=== PATIENT | female | born 1935 | race Caucasian/White ===

== ENCOUNTER 2017-06-24 15:45 | Observation (INO) | payer MEDICARE, BC ==
[2017-06-24] VITALS (7 sets, daily range): BP systolic 112–146; BP diastolic 59–106; PULSE 80–136; RESP 14–20; TEMP 97.6–98.1; O2SAT 97–100
[2017-06-24] MEDS ORDERED: FLEC1TAB8 PO (16:58)
[2017-06-24] MEDS ORDERED: LISI10TA3 PO (16:58)
[2017-06-24] MEDS ORDERED: DILTIAZEM HCL 25 MG/5 ML VIAL IV PUSH ONE (17:00)
--- NOTE | 2017-06-24 17:00 | RADRPT ---
EXAM DATE/TIME: 06/24/2017 16:11 [place] COMPARISON: No previous studies available for comparison. INDICATIONS : Chest pain MEDICAL HISTORY : Cardiovascular disease. SURGICAL HISTORY : None. ENCOUNTER: Initial ACUITY: 2 weeks PAIN SCORE: 2/10 LOCATION: chest FINDINGS: PA and lateral views of the chest demonstrate the lungs to be symmetrically aerated without evidence of mass, infiltrate or effusion. The cardiomediastinal contours are unremarkable. Osseous structure s are intact. CONCLUSION: 1. No acute cardiopulmonary disease. Shant Bobby MD on June 24, 2017 at 16:58 Board Certified Radiologist. This report was verified electronically.
--- NOTE | 2017-06-24 17:10 | PD ---
HPI Chief Complaint: Cardiac Complaint Time Seen by Provider: 16:46 Travel History International Travel<30 days: No Contact w/Intl Traveler<30days: No Traveled to known affect area: No History of Present Illness HPI 81-year-old female presents to the emergency department at the request of her truck packer for chest discomfort that has been intermittent for several weeks. States she had a follow-up with her truck packer for her mitral valve prolapse and decided to move this appointment up to today. Patient states that she saw Dr. Adhikari at 1130a today when he recommended her to come to the emergency department for further evaluation. States that she has had several weeks of intermittent midsternal chest pain without radiation, 4/10 severity, with occasional shortness of breath. No pall/prov factors. She denies nausea or vomiting. Patient is not currently on a blood thinner. Says she has a history of pancreatic cysts but denies any other medical history. Pt is not on blood thinners. She is unsure if she took an ASA today. [facility] Social History Tobacco Use: No Allergies-Medications (Allergen,Severity, Reaction): Uncoded Allergies: ZILOCAINE (Allergy, Severe, Anaphylaxis, 06/24/17) Reported Meds & Prescriptions Reported Meds & Active Scripts Active Reported Flecainide (Flecainide Acetate) 50 Mg Tab 50 Mg PO BID Lisinopril 10 Mg Tab 10 Mg PO DAILY Review of Systems Except as stated in HPI: all other systems reviewed are Neg Physical Exam Narrative GENERAL: Well-nourished in no apparent distress, resting complaint but SKIN: Focused skin assessment warm/dry. HEAD: Atraumatic. Normocephalic. EYES: Pupils equal and round. No scleral icterus. No injection or drainage. ENT: No nasal bleeding or discharge. Mucous membranes pink and moist. NECK: Trachea midline. No JVD. CARDIOVASCULAR: Tachycardic irregularly irregular. No murmur appreciated. RESPIRATORY: No accessory muscle use. Clear to auscultation. Breath sounds equal bilaterally. GASTROINTESTINAL: Abdomen soft, non-tender, nondistended. No CVA tenderness MUSCULOSKELETAL: No obvious deformities. No clubbing. No cyanosis. No edema. NEUROLOGICAL: Awake and alert. No obvious cranial nerve deficits. Motor grossly within normal limits. Normal speech. PSYCHIATRIC: Appropriate mood and affect; insight and judgment normal. Data Data Last Documented VS Vital Signs Date Time Temp Pulse Resp B/P (MAP) Pulse Ox O2 Delivery O2 Flow Rate FiO2 06/24/17 17:44 77 16 113/62 (79) 99 Room Air 06/24/17 15:47 97.6 Orders Orders Electrocardiogram (06/24/17 16:01) Basic Metabolic Panel (Bmp) (06/24/17 16:01) Ckmb (Isoenzyme) Profile (06/24/17 16:01) Complete Blood Count With Diff (06/24/17 16:01) Magnesium (Mg) (06/24/17 16:01) Prothrombin Time / Inr (Pt) (06/24/17 16:01) Act Partial Throm Time (Ptt) (06/24/17 16:01) Troponin I (06/24/17 16:01) Chest, Pa & Lat (06/24/17 16:01) Diltiazem Inj (Cardizem Inj) (06/24/17 17:00) Aspirin Chew (Aspirin Chew) (06/24/17 17:15) CKMB (06/24/17 17:00) CKMB% (06/24/17 17:00) Admit Order (Ed Use Only) (06/24/17 19:19) Code Status (06/24/17 19:44) Vital Signs (Adult) Q4H (06/24/17 19:44) Activity Oob Ad Joelle (06/24/17 19:44) Drill Press Set Up Operator Radial / Telemetry .CONTINUOUS (06/24/17 19:44) Intake + Output SAMIA.QSHIFT (06/24/17 19:44) Diet Heart Healthy (06/25/17 Breakfast) Sodium Chloride 0.9% Flush (Ns Flush) (06/24/17 19:45) Sodium Chloride 0.9% Flush (Ns Flush) (06/24/17 21:00) Metoprolol Tartrate (Lopressor) (06/24/17 21:00) Thyroid Stimulating Hormone (06/24/17 19:46) Troponin I (06/24/17 23:00) Troponin I (06/25/17 05:00) Creatine Kinase (Cpk) (06/24/17 23:00) Creatine Kinase (Cpk) (06/25/17 05:00) Consult Cardiology (06/24/17 19:46) Notify Dr: Other (06/24/17 ) Nitroglycerin Sl (Nitrostat Sl) (06/24/17 20:00) Acetaminophen (Tylenol) (06/24/17 20:00) Complete Blood Count With Diff (06/25/17 06:00) Lipid Profile (06/25/17 06:00) Electrocardiogram (06/24/17 23:00) Electrocardiogram (06/25/17 05:00) Comprehensive Metabolic Panel (06/25/17 06:00) Flecainide (Tambocor) (06/24/17 21:00) Lisinopril (Prinivil) (06/25/17 09:00) Place In Observation (06/24/17 ) Labs Laboratory Tests Test 06/24/17 17:00 White Blood Count 6.6 TH/MM3 Red Blood Count 4.95 MIL/MM3 Hemoglobin 13.6 GM/DL Hematocrit 40.4 % Mean Corpuscular Volume 81.7 FL Mean Corpuscular Hemoglobin 27.4 PG Mean Corpuscular Hemoglobin Concent 33.6 % Red Cell Distribution Width 18.1 % Platelet Count 240 TH/MM3 Mean Platelet Volume 8.6 FL Neutrophils (%) (Auto) 56.7 % Lymphocytes (%) (Auto) 32.8 % Monocytes (%) (Auto) 6.9 % Eosinophils (%) (Auto) 2.4 % Basophils (%) (Auto) 1.2 % Neutrophils # (Auto) 3.7 TH/MM3 Lymphocytes # (Auto) 2.2 TH/MM3 Monocytes # (Auto) 0.5 TH/MM3 Eosinophils # (Auto) 0.2 TH/MM3 Basophils # (Auto) 0.1 TH/MM3 CBC Comment DIFF FINAL Differential Comment Prothrombin Time 10.5 SEC Prothromb Time International Ratio 1.0 RATIO Activated Partial Thromboplast Time 24.9 SEC Blood Urea Nitrogen 13 MG/DL Creatinine 0.81 MG/DL Random Glucose 84 MG/DL Calcium Level 9.0 MG/DL Magnesium Level 2.3 MG/DL Sodium Level 136 MEQ/L Potassium Level 4.1 MEQ/L Chloride Level 103 MEQ/L Carbon Dioxide Level 26.8 MEQ/L Anion Gap 6 MEQ/L Estimat Glomerular Filtration Rate 68 ML/MIN Total Creatine Kinase 272 U/L Creatine Kinase MB 4.4 NG/ML Creatine Kinase MB % 1.6 % Troponin I LESS THAN 0.02 NG/ML B-Type Natriuretic Peptide 475 PG/ML MDM Medical Decision Making Medical Screen Exam Complete: Yes Emergency Medical Condition: Yes Differential Diagnosis A. fib with RVR, STEMI, and STEMI, angina Narrative Course 81-year-old female presents to the emergency department at the request of her truck packer for chest discomfort that has been intermittent for several weeks. States she had a follow-up with her truck packer for her mitral valve prolapse and decided to move this appointment up to today. Patient states that she saw Dr. Adhikari at 1130a today when he recommended her to come to the emergency department for further evaluation. States that she has had several weeks of intermittent midsternal chest pain without radiation, 4/10 severity, with occasional shortness of breath. No pall/prov factors. She denies fevers, chills, nausea or vomiting. Patient is not currently on a blood thinner. Says she has a history of pancreatic cysts but denies any other medical history. Vital signs stable- 146/106, afebrile. A fib w RVR rate of 146-160. Diltiazem .25mg/kg administered. HR decreased to 70 -90. Chest pain resolved. After further discussion, says she had an echocardiogram this morning but does not know the results. Says she had a stress test less than 2 years ago. No heart cath. Laboratory Tests Test 06/24/17 17:00 White Blood Count 6.6 TH/MM3 Red Blood Count 4.95 MIL/MM3 Hemoglobin 13.6 GM/DL Hematocrit 40.4 % Mean Corpuscular Volume 81.7 FL Mean Corpuscular Hemoglobin 27.4 PG Mean Corpuscular Hemoglobin Concent 33.6 % Red Cell Distribution Width 18.1 % Platelet Count 240 TH/MM3 Mean Platelet Volume 8.6 FL Neutrophils (%) (Auto) 56.7 % Lymphocytes (%) (Auto) 32.8 % Monocytes (%) (Auto) 6.9 % Eosinophils (%) (Auto) 2.4 % Basophils (%) (Auto) 1.2 % Neutrophils # (Auto) 3.7 TH/MM3 Lymphocytes # (Auto) 2.2 TH/MM3 Monocytes # (Auto) 0.5 TH/MM3 Eosinophils # (Auto) 0.2 TH/MM3 Basophils # (Auto) 0.1 TH/MM3 CBC Comment DIFF FINAL Differential Comment Prothrombin Time 10.5 SEC Prothromb Time International Ratio 1.0 RATIO Activated Partial Thromboplast Time 24.9 SEC Blood Urea Nitrogen 13 MG/DL Creatinine 0.81 MG/DL Random Glucose 84 MG/DL Calcium Level 9.0 MG/DL Magnesium Level 2.3 MG/DL Sodium Level 136 MEQ/L Potassium Level 4.1 MEQ/L Chloride Level 103 MEQ/L Carbon Dioxide Level 26.8 MEQ/L Anion Gap 6 MEQ/L Estimat Glomerular Filtration Rate 68 ML/MIN Total Creatine Kinase 272 U/L Creatine Kinase MB 4.4 NG/ML Creatine Kinase MB % 1.6 % Troponin I LESS THAN 0.02 NG/ML Last Impressions Chest X-Ray 06/24/17 1601 Signed Impressions: Service Date/Time: Saturday, June 24, 2017 16:11 - CONCLUSION: 1. No acute cardiopulmonary disease. Shant Bobby MD Patient be admitted with new onset A. fib with RVR. She has had weeks of chest pain with associated shortness of breath and followed up with her truck packer today who recommended she come to the emergency department for evaluation. Patient received .25 mg/kg of diltiazem which successfully reduced her heart rate to the 70s-90s and resolved her chest pain. Patient should be admitted for continuous monitoring and cardiac consult as this is her first onset of A. fib with RVR. Pt will be admitted to Dr. Gipson. Dr. Viveros attending. Diagnosis Primary Impression: Atrial fibrillation with RVR Admitting Information Admitting Physician Requests: Observation Condition: Stable Ольга Hart Jun 24, 2017 17:10
[2017-06-24] MEDS ORDERED: ASPIRIN 81 MG CHEW TAB CHEW ONE (17:15)
[2017-06-24 17:46] LABS: AUTOMATED NEUTROPHIL # 3.7 TH/MM3 (1.8-7.7); BASOPHIL # 0.1 TH/MM3 (0-0.2); BASOPHIL % 1.2 % (0.0-2.0); EOSINOPHIL # 0.2 TH/MM3 (0-0.4); EOSINOPHIL % 2.4 % (0.0-4.0); HEMATOCRIT 40.4 % (35.0-46.0); HEMOGLOBIN 13.6 GM/DL (11.6-15.3); LYMPH % 32.8 % (9.0-44.0); LYMPHOCYTE # 2.2 TH/MM3 (1.0-4.8); MEAN CELL VOLUME 81.7 FL (80.0-100.0); MEAN CORPUSCULAR HEMOGLOBIN 27.4 PG (27.0-34.0); MEAN CORPUSCULAR HGB CONC 33.6 % (32.0-36.0); MEAN PLATELET VOLUME 8.6 FL (7.0-11.0); MONO % 6.9 % (0.0-8.0); MONOCYTE # 0.5 TH/MM3 (0-0.9); NEUT % 56.7 % (16.0-70.0); PLATELET COUNT 240 TH/MM3 (150-450); RED BLOOD COUNT 4.95 MIL/MM3 (4.00-5.30); RED CELL DISTRIBUTION WIDTH 18.1 % (11.6-17.2); WHITE BLOOD COUNT 6.6 TH/MM3 (4.0-11.0)
[2017-06-24 17:56] LABS: PROTHROMBIN TIME - PATIENT 10.5 SEC (9.8-11.6)
[2017-06-24 18:00] LABS: BICARBONATE 26.8 MEQ/L (21.0-32.0); BLOOD UREA NITROGEN 13 MG/DL (7-18); CHLORIDE 103 MEQ/L (98-107); CREATININE 0.81 MG/DL (0.50-1.00); GLOMERULAR FILTRATION RATE 68 ML/MIN (>89); GLUCOSE,RANDOM 84 MG/DL (74-106); MAGNESIUM 2.3 MG/DL (1.5-2.5); SODIUM (NA) 136 MEQ/L (136-145)
[2017-06-24 18:04] LABS: TROPONIN I LESS THAN 0.02 NG/ML (0.02-0.05)
--- NOTE | 2017-06-24 19:35 | HHI.HP ---
[facility] Service Family Medicine Primary Care Physician Non-Staff Admission Diagnosis New onset symptomatic A fib with RVR Diagnoses: Chief Complaint: Shortness of breath and chest heaviness International Travel<30 Days: No Contact w/Intl Traveler<30days: No Known Affected Area: No History of Present Illness Patient is a 81-year-old female with a past medical history significant for mitral valve prolapse, hypertension, and glaucoma who presents today for shortness of breath and chest heaviness. She has been experiencing shortness of breath and chest heaviness for the past couple weeks on and off. She has history of mitral valve prolapse and has palpitations with that. She went to see Dr. Adhikari today and he found that her resting heart rate was 139. He did an Echo in his office and sent her to the ED for further evaluation and treatment. The shortness of breath comes and goes. The chest heaviness started 10 days and has been intermittent. The chest heaviness has been different recently, happening more often over the past week. It has not increased in intensity, but she has felt fatigued often. Things that she was previously able to do without difficulty now make her tired. Things like shopping and housework make her feel exhausted. Sometimes, she would also get shortness of breath with these activities. She especially noticed symptoms while climbing stairs, or hurrying, or bending over. The heaviness is located in the center of her chest. She was feeling the heaviness when she got to the ED and it improved after receiving diltiazem. She is now feeling a small amount of chest heaviness. She denies any weakness, nausea, vomiting, light- headedness, or vision changes. Sometimes she would feel like her heart wasn't beating right like a skipped beat or faster than usual. No recent illnesses. Review of Systems Constitutional: COMPLAINS OF: Fatigue, DENIES: Fever, Chills, Dizziness Eyes: DENIES: Blurred vision, Eye pain Ears, nose, mouth, throat: DENIES: Nasal discharge, Throat pain, Sinus Pain Respiratory: COMPLAINS OF: Cough (dry cough intermittently), Shortness of breath Cardiovascular: COMPLAINS OF: Chest pain, Palpitations, Dyspnea on Exertion, Lower Extremity Edema (ankles off and on) Gastrointestinal: COMPLAINS OF: Constipation (intermittent), DENIES: Abdominal pain, Black stools, Bloody stools, Diarrhea, Nausea, Vomiting Genitourinary: DENIES: Abnormal vaginal bleeding, Hematuria Musculoskeletal: DENIES: Joint pain, Muscle aches Integumentary: DENIES: Rash Hematologic/lymphatic: COMPLAINS OF: Bruising Neurologic: DENIES: Headache, Localized weakness, Paresthesias Psychiatric: COMPLAINS OF: Depression (on Wellbutrin), DENIES: Anxiety Past Family Social History Past Medical History MVP on flecainide HTN Glaucoma Past Surgical History Left hand surgery, release of trigger finger in March 2017 Reported Medications Reported Meds & Active Scripts Active Reported Flecainide (Flecainide Acetate) 50 Mg Tab 50 Mg PO BID Lisinopril 10 Mg Tab 10 Mg PO DAILY Wellbutrin 150mg PO daily Latanoprost opth Allergies: Uncoded Allergies: ZILOCAINE (Allergy, Severe, Anaphylaxis, 06/24/17) Family History Mother- Emphysema, HTN Father- Colon cancer Brother- HTN, Glaucoma Social History , lives alone with dog. No tobacco, alcohol, or illicit drug use. Health Care Proxy is Daughter- Yelena Hidalgo [phone]. Physical Exam Vital Signs Vital Signs Date Time Temp Pulse Resp B/P (MAP) Pulse Ox O2 Delivery O2 Flow Rate FiO2 06/24/17 17:44 77 16 113/62 (79) 99 Room Air 06/24/17 17:20 83 17 112/65 (81) 100 Room Air 06/24/17 17:09 82 20 132/69 (90) 98 Room Air 06/24/17 16:52 127 99 Room Air 06/24/17 15:47 97.6 136 14 146/106 (119) 99 Physical Exam GENERAL: This is a well-nourished, well-developed female patient, in no apparent distress. SKIN: No rashes, ecchymoses or lesions. Cool and dry. HEAD: Atraumatic. Normocephalic. No temporal or scalp tenderness. EYES: Pupils equal round and reactive. Extraocular motions intact. No scleral icterus. No injection or drainage. ENT: Nose without bleeding, purulent drainage or septal hematoma. Throat without erythema, tonsillar hypertrophy or exudate. Uvula midline. Airway patent. NECK: Trachea midline. No JVD or lymphadenopathy. Supple, nontender, no meningeal signs. CARDIOVASCULAR: Irregularly irregular rate and rhythm without murmurs, gallops, or rubs. RESPIRATORY: Clear to auscultation. Mild crackles in bases bilaterally. Breath sounds equal bilaterally. No wheezes or rhonchi. GASTROINTESTINAL: Abdomen soft, non-tender, nondistended. No hepato-splenomegaly , or palpable masses. No guarding. MUSCULOSKELETAL: Extremities without clubbing, cyanosis, or edema. No joint tenderness, effusion, or edema noted. No calf tenderness. Negative Homans sign bilaterally. NEUROLOGICAL: Awake and alert. Cranial nerves II through XII intact. Motor and sensory grossly within normal limits. Normal speech. Laboratory Laboratory Tests Test 06/24/17 17:00 White Blood Count 6.6 Red Blood Count 4.95 Hemoglobin 13.6 Hematocrit 40.4 Mean Corpuscular Volume 81.7 Mean Corpuscular Hemoglobin 27.4 Mean Corpuscular Hemoglobin Concent 33.6 Red Cell Distribution Width 18.1 Platelet Count 240 Mean Platelet Volume 8.6 Neutrophils (%) (Auto) 56.7 Lymphocytes (%) (Auto) 32.8 Monocytes (%) (Auto) 6.9 Eosinophils (%) (Auto) 2.4 Basophils (%) (Auto) 1.2 Neutrophils # (Auto) 3.7 Lymphocytes # (Auto) 2.2 Monocytes # (Auto) 0.5 Eosinophils # (Auto) 0.2 Basophils # (Auto) 0.1 CBC Comment DIFF FINAL Differential Comment Prothrombin Time 10.5 Prothromb Time International Ratio 1.0 Activated Partial Thromboplast Time 24.9 Blood Urea Nitrogen 13 Creatinine 0.81 Random Glucose 84 Calcium Level 9.0 Magnesium Level 2.3 Sodium Level 136 Potassium Level 4.1 Chloride Level 103 Carbon Dioxide Level 26.8 Anion Gap 6 Estimat Glomerular Filtration Rate 68 Total Creatine Kinase 272 Creatine Kinase MB 4.4 Creatine Kinase MB % 1.6 Troponin I LESS THAN 0.02 Result Diagram: 06/24/17 1700 06/24/17 1700 Imaging Last Impressions Chest X-Ray 06/24/17 1601 Signed Impressions: Service Date/Time: Saturday, June 24, 2017 16:11 - CONCLUSION: 1. No acute cardiopulmonary disease. MD Rosey Moreno VTE Risk Assessment Rosey VTE Risk Assessment: Mod/High Risk (score >= 2) Caprini Risk Assessment Model Point Value = 1 Point Value = 2 Point Value = 3 Point Value = 5 Age 41-60 Minor surgery BMI > 25 kg/m2 Swollen legs Varicose veins or History of unexplained or recurrent spontaneous Oral contraceptives or hormone replacement Sepsis (< 1 month) Serious lung disease, including pneumonia (< 1 month) Abnormal pulmonary function Acute myocardial infarction Congestive heart failure (< 1 month) History of inflammatory bowel disease Medical patient at bed rest Age 61-74 Arthroscopic surgery Major open surgery (> 45 min) Laparoscopic surgery (> 45 min) Malignancy Confined to bed (> 72 hours) Immobilizing plaster cast Central venous access Age >= 75 History of VTE Family history of VTE Factor V Leiden Prothrombin [id number] Lupus anticoagulant Anticardiolipin antibodies Elevated serum homocysteine Heparin-induced thrombocytopenia Other congenital or acquired thrombophilia Stroke (< 1 month) Elective arthroplasty Hip, pelvis, or leg fracture Acute spinal cord injury (< 1 month) Prophylaxis Regimen Total Risk Factor Score Risk Level Prophylaxis Regimen 0-1 Low Early ambulation 2 Moderate Order ONE of the following: *Sequential Compression Device (SCD) *Heparin 5000 units SQ BID 3-4 Higher Order ONE of the following medications: *Heparin 5000 units SQ TID *Enoxaparin/Lovenox 40 mg SQ daily (WT < 150 kg, CrCl > 30 mL/min) *Enoxaparin/Lovenox 30 mg SQ daily (WT < 150 kg, CrCl > 10-29 mL/min) *Enoxaparin/Lovenox 30 mg SQ BID (WT < 150 kg, CrCl > 30 mL/min) AND/OR *Sequential Compression Device (SCD) 5 or more Highest Order ONE of the following medications: *Heparin 5000 units SQ TID (Preferred with Epidurals) *Enoxaparin/Lovenox 40 mg SQ daily (WT < 150 kg, CrCl > 30 mL/min) *Enoxaparin/Lovenox 30 mg SQ daily (WT < 150 kg, CrCl > 10-29 mL/min) *Enoxaparin/Lovenox 30 mg SQ BID (WT < 150 kg, CrCl > 30 mL/min) AND *Sequential Compression Device (SCD) Assessment and Plan Assessment and Plan Patient is a 81-year-old female with a past medical history significant for mitral valve prolapse, hypertension, and glaucoma who presents today for shortness of breath and chest heaviness and is admitted for new onset A. fib with RVR. Code Status DNR Discussed Condition With wdw Dr. Viveros Problem List: (1) Atrial fibrillation with RVR ICD Codes: I48.91 - Unspecified atrial fibrillation Status: Acute Plan: New-onset A. fib with RVR Likely secondary to mitral valve prolapse s/p diltiazem 14 mg IV push in ED with subsequent rate control Initial troponin less than 0.02, CK-MB slightly elevated at 4.4 BNP 475 TSH elevated at 7.23 Echocardiogram performed in process excellence manager's office today Chest x-ray shows no acute cardiopulmonary disease CHADs-VASc score of 4- Will start therapeutic Lovenox and bridge Coumadin Plan: - Tele - WI r/o with serial EKG's and cardiac enzymes - Obtain T4 - Lipid profile - Start metoprolol 25mg PO BID - Monitor I's and O's - Nitro PRN chest pain - Consult cardiology, Dr. Adhikari (2) Mitral valve prolapse ICD Codes: I34.1 - Nonrheumatic mitral (valve) prolapse Status: Chronic Plan: Follow up echo results from yesterday (3) HTN (hypertension) ICD Codes: I10 - Essential (primary) hypertension Status: Chronic Plan: Stable, continue home lisinopril (4) Nutrition, metabolism, and development symptoms ICD Codes: R63.8 - Other symptoms and signs concerning food and fluid intake Plan: Fluids: None Electrolytes: wnl, continue to monitor and replete PRN Nutrition: Heart Healthy diet DVT ppx: Therapeutic Lovenox for a fib as above Problem Qualifiers (1) HTN (hypertension): Qualified Codes: I10 - Essential (primary) hypertension Luana Gipson MD, R3 Jun 24, 2017 19:35
[2017-06-24] MEDS ORDERED: SODIUM CHLORIDE 0.9% FLUSH 10 ML FLUSH IV FLUSH PRN (19:45)
[2017-06-24] MEDS ORDERED: NITROGLYCERIN 0.4 MG SL 25 TABS/BTL SL PRN (20:00)
[2017-06-24] MEDS ORDERED: ACETAMINOPHEN 500 MG CPLT PO PRN (20:00)
[2017-06-24] MEDS ORDERED: PILL SPLITTER OTHER PRN (21:00)
[2017-06-24] MEDS: ENOXAPARIN SODIUM 60 MG/0.6 ML SYRINGE SQ SCH (23:27)
[2017-06-24] MEDS: FLECAINIDE ACETATE 100 MG TAB PO SCH (23:27)
[2017-06-24] MEDS: METOPROLOL TARTRATE 25 MG TAB PO SCH (23:28)
[2017-06-24] MEDS: SODIUM CHLORIDE 0.9% FLUSH 10 ML FLUSH IV FLUSH SCH (23:28)
[2017-06-25] VITALS (11 sets, daily range): BP systolic 96–111; BP diastolic 53–65; PULSE 65–97; RESP 18–20; TEMP 97.9–98.7; O2SAT 95–99
[2017-06-25 00:14] LABS: TROPONIN I LESS THAN 0.02 NG/ML (0.02-0.05)
--- NOTE | 2017-06-25 07:43 | HHI.FPPN ---
Subjective Remarks Ann-Marie Caldwell is a 81yo lady with h/o mitral valve prolapse and HTN admitted under observation for chest heaviness and SOB, which was evaluated at her neon glass blower (Dr Adhikari's) office the day of admission. At the neon glass blower's office, her heart rate was 139, and she was sent to ER for evaluation. For further details, please see resident H&P dated 06/24/17. Overnight, rate came under control after 1 dose of IV cardizem and with oral metoprolol. This morning, pt is without complaints. She has been out of bed without any shortness of breath or chest pain. ROS: Per resident H&P dated 06/24/17. No chest pain, no palpitations, no SOB. All other systems reviewed are negative. PMH/PSxH/SocHx/FamHx: Per resident H&P dated 06/24/17. Significant for: mitral valve prolapse, HTN, glaucoma. Left hand surgery. Fam hx of colon CA, HTN, emphysema. She lives alone, is . No tobacco, alcohol, or recreational drug use. Objective Vitals Vital Signs Date Time Temp Pulse Resp B/P (MAP) Pulse Ox O2 Delivery O2 Flow Rate FiO2 06/25/17 07:24 97.9 65 18 111/65 (80) 99 06/25/17 04:03 75 06/25/17 03:30 98.7 74 20 106/53 (70) 98 06/25/17 00:01 78 06/24/17 23:10 97.7 91 17 114/59 (77) 97 06/24/17 21:52 06/24/17 21:32 98.1 88 16 137/81 (99) 98 06/24/17 20:27 80 16 129/76 (93) 99 Room Air 06/24/17 17:44 77 16 113/62 (79) 99 Room Air 06/24/17 17:20 83 17 112/65 (81) 100 Room Air 06/24/17 17:09 82 20 132/69 (90) 98 Room Air 06/24/17 16:52 127 99 Room Air 06/24/17 15:47 97.6 136 14 146/106 (119) 99 I/O 06/24/17 06/24/17 06/24/17 06/25/1718 2/13/18 07:00 15:00 23:00 07:00 15:00 23:00 Intake Total 240 ml Balance 240 ml Intake Oral 240 ml # Voids 1 Result Diagram: 06/24/17 1700 06/24/17 1700 Objective Remarks Per resident H&P dated 06/24/17. Significant for: irregularly irregular, rate <100. Dr Adhikari at bedside. A/P Assessment and Plan Patient is a 81-year-old female with a past medical history significant for mitral valve prolapse, hypertension, and glaucoma who presents today for shortness of breath and chest heaviness and is admitted for new onset A. fib with RVR. Attending Attestation Patient seen, examined, and discussed with resident team around 9:30 on rounds. This note is written in conjunction with resident H&P dated 06/24/17. Problem List: (1) Atrial fibrillation with RVR ICD Codes: I48.91 - Unspecified atrial fibrillation Status: Acute Plan: New-onset A. fib with RVR. Likely secondary to mitral valve prolapse. s/p diltiazem 14 mg IV push in ED with subsequent rate control Troponins reassuring. BNP 475 TSH elevated at 7.23, but Free T4 WNL. Pt may benefit from repeat TSH/Free T4 in a few weeks as an outpatient. Echocardiogram performed in neon glass blower's office on 06/24/17, which demonstrated severe mitral regurgitation. Chest x-ray shows no acute cardiopulmonary disease CHADs-VASc score of 4- Will start therapeutic Lovenox and bridge to Eliquis after cardiac catheterization per Dr Adhikari. Plan: - Telemetry - Lipid profile - Continue metoprolol 25mg PO BID - Monitor I's and O's - Nitro PRN chest pain - Appreciate cardiology, Dr. Adhikari. Plan for cardiac catheterization in the morning. (2) Mitral valve prolapse ICD Codes: I34.1 - Nonrheumatic mitral (valve) prolapse Status: Chronic Plan: Pt with severe Mitral valve disease per Dr Adhikari. Further recs per cardiology. Stop flecainide. (3) HTN (hypertension) ICD Codes: I10 - Essential (primary) hypertension Status: Chronic Plan: Stable, continue home lisinopril Monitor BPs. Problem Qualifiers (1) HTN (hypertension): Qualified Codes: I10 - Essential (primary) hypertension Elin Viveros MD Jun 25, 2017 07:43
[2017-06-25] MEDS: ENOXAPARIN SODIUM 60 MG/0.6 ML SYRINGE SQ SCH (08:56)
[2017-06-25] MEDS: FLECAINIDE ACETATE 100 MG TAB PO SCH (08:57)
[2017-06-25] MEDS: METOPROLOL TARTRATE 25 MG TAB PO SCH ×2 (08:57→21:00)
[2017-06-25] MEDS: SODIUM CHLORIDE 0.9% FLUSH 10 ML FLUSH IV FLUSH SCH ×2 (08:58→21:00)
[2017-06-25] MEDS ORDERED: LISINOPRIL 10 MG TAB PO SCH (09:00)
[2017-06-25 09:20] LABS: AUTOMATED NEUTROPHIL # 2.5 TH/MM3 (1.8-7.7); BASOPHIL # 0.1 TH/MM3 (0-0.2); BASOPHIL % 1.4 % (0.0-2.0); EOSINOPHIL # 0.1 TH/MM3 (0-0.4); EOSINOPHIL % 3.4 % (0.0-4.0); HEMATOCRIT 39.5 % (35.0-46.0); HEMOGLOBIN 13.3 GM/DL (11.6-15.3); LYMPH % 31.7 % (9.0-44.0); LYMPHOCYTE # 1.4 TH/MM3 (1.0-4.8); MEAN CELL VOLUME 81.7 FL (80.0-100.0); MEAN CORPUSCULAR HEMOGLOBIN 27.6 PG (27.0-34.0); MEAN CORPUSCULAR HGB CONC 33.8 % (32.0-36.0); MEAN PLATELET VOLUME 8.7 FL (7.0-11.0); MONO % 6.2 % (0.0-8.0); MONOCYTE # 0.3 TH/MM3 (0-0.9); NEUT % 57.3 % (16.0-70.0); PLATELET COUNT 214 TH/MM3 (150-450); RED BLOOD COUNT 4.83 MIL/MM3 (4.00-5.30); RED CELL DISTRIBUTION WIDTH 18.8 % (11.6-17.2); WHITE BLOOD COUNT 4.4 TH/MM3 (4.0-11.0)
[2017-06-25 09:28] LABS: INTERNATIONAL NORMALIZED RATIO 1.1 RATIO; PROTHROMBIN TIME - PATIENT 11.2 SEC (9.8-11.6)
[2017-06-25] MEDS ORDERED: APIX5TAB PO (09:30)
[2017-06-25] MEDS ORDERED: METO25TA3 PO (09:31)
--- NOTE | 2017-06-25 09:33 | HHI.DCPOC ---
Discharge Care Plan Diagnosis: (1) Atrial fibrillation with RVR (2) Mitral valve prolapse (3) HTN (hypertension) Goals to Promote Your Health * To prevent worsening of your condition and complications * To maintain your health at the optimal level Directions to Meet Your Goals Take your medications as prescribed Follow your dietary instruction Follow activity as directed Keep your appointments as scheduled Take your immunizations and boosters as scheduled If your symptoms worsen call your PCP, if no PCP go to Urgent Care Center or Emergency Room Smoking is Dangerous to Your Health. Avoid second hand smoke Call the 24-hour hour crisis hotline for domestic abuse at Ameena Castillo MD R2 Jun 25, 2017 09:33
[2017-06-25 09:54] LABS: ALBUMIN 3.4 GM/DL (3.4-5.0); AST (GOT) 26 U/L (15-37); BICARBONATE 27.4 MEQ/L (21.0-32.0); BLOOD UREA NITROGEN 15 MG/DL (7-18); CALCIUM 8.4 MG/DL (8.5-10.1); CHLORIDE 103 MEQ/L (98-107); CREATININE 0.78 MG/DL (0.50-1.00); GLOMERULAR FILTRATION RATE 71 ML/MIN (>89); GLUCOSE,RANDOM 87 MG/DL (74-106); SODIUM (NA) 136 MEQ/L (136-145)
[2017-06-25 09:56] LABS: CHOLESTEROL 200 MG/DL (120-200)
[2017-06-25 10:00] LABS: ALKALINE PHOSPHATASE 71 U/L (45-117); ALT (GPT) 26 U/L (10-53); CHOLESTEROL/ HDL RATIO 2.19 RATIO; HDL CHOLESTEROL 91.2 MG/DL (40.0-60.0); LDL CHOLESTEROL 101 MG/DL (0-99); TOTAL BILIRUBIN ADULT 0.5 MG/DL (0.2-1.0); TOTAL PROTEIN 6.2 GM/DL (6.4-8.2); TRIGLYCERIDES 41 MG/DL (42-150)
[2017-06-25] MEDS ORDERED: DIAZEPAM 5 MG TAB PO SCH (10:00)
[2017-06-25] MEDS ORDERED: diphenhydrAMINE HCL 25 MG CAP PO SCH (10:00)
--- NOTE | 2017-06-25 10:33 | MB ---
cc: ABBY SALGADO M.D. DATE OF CONSULTATION 06/25/2017 REASON FOR CONSULTATION For evaluation of A-fib. HISTORY OF PRESENT ILLNESS Ann-Marie Caldwell is a 81-year-old female with a longstanding history of mitral valve prolapse. She came into my office yesterday with shortness of breath with exertion, heaviness in her chest and fatigue. It had been going on over a week. She was found to be A-fib with rapid ventricular response. She went on to get her dog taken care of and then showed up at the ER and has now been admitted. She got one dose of 10 mg IV Cardizem and then started on metoprolol 25 b.i.d. and her heart rate is controlled. She is not on any drips currently. She was put on Lovenox. The patient is feeling better this morning. No chest pain. The shortness of breath is improved. PAST MEDICAL HISTORY 1. Previous basal cell carcinomas. 1. Previous coronary calcium score of 0 in 2000. 2. Hyperlipidemia. 3. Hypertension. 4. She has cysts in her liver and her pancreas. 5. She has mitral valve prolapse. 6. Sciatica. 7. Venous insufficiency. PAST SURGICAL HISTORY 1. D&C. 2. Surgery on both feet. CURRENT MEDICATIONS 1. Lovenox. 2. Flecainide is being stopped. 3. She is on lisinopril 10 mg daily. 4. Metoprolol 25 b.i.d. ALLERGIES MENTION OF EPINEPHRINE. FAMILY HISTORY Positive for breast cancer in a grandmother, colon cancer in father, coronary artery disease in both parents, hypertension in a brother and her mother, myocardial infarction in her father and ovarian cancer in her grandmother. SOCIAL HISTORY She smoked from age 20 to age 57. She is a retired fabric machine operator. She is . REVIEW OF SYSTEMS Noncontributory. Has denied any difficulty with bleeding. PHYSICAL EXAMINATION GENERAL: Physical exam shows a pleasant, petite, elderly female in no acute distress. VITAL SIGNS: Charted. HEENT: Exam unremarkable. NECK: Improvement in her JVD. She does not have JVD on her exam today. CHEST: Clear to auscultation. CARDIAC EXAM: S1, S2. Regular rate and rhythm with a grade 2/6 mid-systolic click and mitral regurgitation murmur. ABDOMEN: Soft, nontender. No masses or organomegaly. EXTREMITIES: No clubbing, cyanosis or edema. EKG The EKG initially showed A-fib with RVR. LABORATORY WORK CBC is normal. Creatinine was 0.81 yesterday. Troponins have been negative x2. CHEST X-RAY Showing no acute disease. IMPRESSION Recent onset atrial fibrillation with dyspnea on exertion and anginal pain. The heart rate is now better controlled. Her echo from yesterday shows moderate to severe mitral regurgitation. I think it is likely she is going to end up needing a mitral valve repair. PLAN I have obtained informed consent for cardiac catheterization tomorrow morning. In the meantime we will continue Lovenox and will stop that after noon today to permit a cath tomorrow. Post-cath we will probably get her started on Eliquis but will need to give consideration to mitral valve repair or replacement. MD JUDY Haynes/ELAINA /9:48 AM /10:16 AM
[2017-06-25] MEDS ORDERED: SODIUM CHLOR 0.9% 1000 ML INJ 1,000 ML IV SCH (12:00)
[2017-06-25] MEDS: SODIUM CHLOR 0.9% 1000 ML INJ 1,000 ML IV SCH ×2 (15:07→21:49)
[2017-06-25] MEDS ORDERED: WARFARIN SOD 1 MG TAB PO SCH (16:00)
[2017-06-25 18:04] LABS: TROPONIN I LESS THAN 0.02 NG/ML (0.02-0.05)
--- NOTE | 2017-06-25 18:40 | EKG ---
Date Performed: 06/24/2017 Time Performed: 16:52:48 PTAGE: 81 years EKG: ATRIAL FIBRILLATION WITH RAPID VENTRICULAR RESPONSE MODERATE ST DEPRESSION ABNORMAL ECG NO PREVIOUS TRACING DOCTOR: Ervin Gee Interpretating Date/Time 06/25/2017 18:39:18
--- NOTE | 2017-06-25 18:40 | EKG ---
Date Performed: 06/24/2017 Time Performed: 23:15:30 PTAGE: 81 years EKG: ATRIAL FIBRILLATION When compared to previous tracing, ventricular response atrial Fibrilla tion has slowed. ABNORMAL RHYTHM ECG PREVIOUS TRACING : 06/24/2017 16.52 DOCTOR: Ervin Gee Interpretating Date/Time 06/25/2017 18:40:05
--- NOTE | 2017-06-25 18:40 | EKG ---
Date Performed: 06/25/2017 Time Performed: 05:17:20 PTAGE: 81 years EKG: ATRIAL FIBRILLATION WITH ABERRANT CONDUCTION OR VENTRICULAR PREMATURE COMPLEXES Since previ ous tracing, no significant change noted ABNORMAL RHYTHM ECG PREVIOUS TRACING : 06/24/2017 23.15 DOCTOR: Ervin Gee Interpretating Date/Time 06/25/2017 18:40:22
[2017-06-26 01:20] VITALS: BP 100/58; PULSE 74; RESP 18; TEMP 98.1; O2SAT 97
[2017-06-26 03:32] VITALS: BP 106/70; PULSE 76; RESP 18; TEMP 98.4; O2SAT 100
[2017-06-26 04:00] VITALS: PULSE 73
[2017-06-26] MEDS ORDERED: NITROGLYCERIN INJ 5 ML ONE (07:13)
[2017-06-26] MEDS ORDERED: HEPARIN-NS/PF FLUSH BAG 2,000 ML IV FLUSH ONE (07:13)
[2017-06-26] MEDS ORDERED: MIDAZOLAM HCL 2 MG/2 ML VIAL ONE (07:24)
[2017-06-26] MEDS ORDERED: BUPIVACAINE HCL PF 0.5% 10 ML VIAL ONE (07:58)
--- NOTE | 2017-06-26 08:56 | CATHPROC ---
[employer] HIS Report Study Information Study Number Admission Scheduled Start Study Start [id number] Jun 24 2017 7:56PM 06/26/2017 Jun 26 2017 7:22AM Study Type Flasher Service Left and Right Heart Cath Cardiac Catheterization Admit Source Facility Department Emergency department [facility] - Spiritual Counselor Physician and Clinical Staff Initial Aquilino Mark Manager Small Business Randy RN, Yosef RecordHolly Turner,CORE JAVA ENGINEER TECH2 Scrub Shelli Mccoy,RT(R) Procedures Performed Procedure Location (Site) Vessel Name Angiogram LV LV Ventricle Coronary Angiograms LCA Left Coronary Equipment Time Statuary Painter Description Size Mfg Part Number Used/Scraped [id number] 08:02 JOSE ARNOLD SWAN HIRO CATHETER FR 7 Used *[id number] TRANSDUCER, TRUWAVE [id number] 08:02 JOSE ARNOLD * Used W/STOCKCOCK *[id number] TRANSDUCER, TRUWAVE [id number] 08:02 JOSE ARNOLD * Used W/STOCKCOCK *[id number] *[id number] [id number] *[id number] *[id number] PIGTAIL ANG. 145 INFINITI [id number] CATHETER *[id number] 08:31 DAIG/[employer]. [employer]IT[employer] MEDICAL ANGIOSEAL, FR6 VIP FR 6 Used *[id number] 08:02 MEDLINE IND[employer] PACK, CCL CUSTOM * Used *[id number] 08:02 Aldera PACER PEN, SKIN DUAL W/ RULER * Used *[id number] 08:13 [employer] MEDICAL SHEATH, FR6.5 PRELUDE 11CM FR 6.5 038ACT Used *[id number] 08:02 [employer] MEDICAL WIRE, 3MMJ .035 180CM 180CM Used *[id number] 08:02 NAMIC MANIFOLD, 2 PORT * Used *[id number] 08:02 NAMIC MANIFOLD, 4 PORT * Used *[id number] 08:02 NYCOMED OMNIPAQUE, 350 MG, 100ML 100ML [id number] Used 08:19 NYCOMED OMNIPAQUE, 350 MG, 50ML 50ML [id number] Used [id number] 08:02 [employer] MEDICAL BLANKET,WARM AIR CCL * Used *[id number] 08:02 TERUMO MEDICAL SHEATH, FR7 TERUMO (10CM) FR 7 Used *[id number] History: Current Medications Medication Dosage/Unit Route Frequency Last Date/Time Taken LISINOPRIL History: Allergies Allergy Reaction ZILOCAINE Anaphylaxis History: Risk Factors Family History of Hypertension Dyslipidemia Previous [place] Previous Heart Failure Premature CAD Yes Yes Yes No No Prior Valve Prior PCI Prior CABG Surgery No No No Cerebrovascular Peripheral Artery Chronic Lung On Dialysis Diabetes Disease Disease Disease No No No No No History: Symptoms/Diagnosis Selection Items Palpitations SOB History: Stress Tests Stress or Imaging Studies Performed No History: Other Current Smoker Method Quit Packs a Day Years Used Pack Years No Cigarettes 22 Years Ago 1 25 25 Labs Hgb (g/dl) Hct (%) WBC (l/cumm) Platelets (thousands) 11.60-17.00 35.00-51.00 4.00-11.00 150.00-450.00 13.3 39.5 4.4 214 Glucose (mg/dl) BUN (mg/dl) Creatinine (mg/dl) BUN:Creatinine (1:x) 74.00-106.00 7.00-18.00 0.50-1.30 10.00-20.00 87 15 0.7 21.4 Na (meq/l) K (meq/l) 136.00-145.00 3.50-5.10 136 4.2 INR (PTT:PT) 0.90-1.10 1.1 Troponin I (ng/ml) CPK (u/l) CPK-MB (ng/ML) 0.02-0.05 26.00-308.00 0.50-3.60 0.02 272 4.4 Medication Medication Total Dose (Bolus/Oral) Medication Total Dosage/Unit Bupivacaine 10 mL VERSED 1 mg Medications (Bolus/Oral) Medication Time Given Dosage/Unit Administered By Reason VERSED 06/26/2017 8:04:03 AM 1 mg Yosef Padilla RN Patient arrived on 1 mg VERSED given by Yosef Padilla RN in Left Forearm via Peripheral IV. Bupivacaine 06/26/2017 8:04:49 AM 10 mL Aquilino Adhikari 10 mL Bupivacaine given in lab by Aquilino Adhikari in Right Groin via Subcutaneous. Medication (Drip) Medication Time Given Dosage/Unit Concentration/Unit Diluent (ml) Solution IV Solutions 06/26/2017 7:22:22 AM 0 mL (IV) 500 NaCl .9 Patient arrived on IV Solutions in Left Forearm via Peripheral IV. Pump/Drip Flow = 20 ml/hr using Na Cl .9. Initial Case Assessment Cardiovascular HR Rhythm NIBP Chest Pain 98 afib 136/88 0 Circulatory - Right Pulses Dorsalis Pedis Femoral 2 3 Scale (0,1,2,3,4,d) Circulatory - Left Pulses Dorsalis Pedis Femoral 2 3 Scale (0,1,2,3,4,d) Neurological State Oriented to time-place- Alert Moves all extremities person Respiration - General Respiration Rate SpO2 (%) (B/min) 15 99 Final Case Assessment Cardiovascular HR Rhythm NIBP Chest Pain 91 afib 127/77 0 Circulatory - Right Pulses Dorsalis Pedis Femoral 2 3 Scale (0,1,2,3,4,d) Circulatory - Left Pulses Dorsalis Pedis Femoral 2 3 Scale (0,1,2,3,4,d) Neurological State Oriented to time-place- Alert Moves all extremities person Respiration - General Respiration Rate SpO2 (%) (B/min) 13 100 Chronological Log Time Study Chronological Log 7:18:40 Patient arrived via Bed. 7:18:46 Patient Name, D.O.B, / Armband Verified By R.N. 7:20:46 MD notified cathlab he will be 10 min late 7:21:53 Pre-op and post- op instructions given; patient acknowledges understanding of instructions. 7:21:55 Verbal Stimulation=2 Physical Stimulation=2 Airway=2 Respiration=2 TOTAL=8. (0=absent, 1=sierra ited, 2=present) 7:22:02 Presedation assessment performed by Spiritual Counselor RN. 7:22:03 Consent signed by the physician and the patient and verified by the Spiritual Counselor staff. 7:22:14 Patient has been NPO for More than 6Hrs. 7:22:16 Skin Breakdown-none per patient 7:22:18 Shirley Prominences Protected 7:22:21 A # 20 IV was noted in the Forearm (left). Grade = patent 7:22:22 Patient arrived on IV Solutions in Left Forearm via Peripheral IV. Pump/Drip Flow = 20 ml/hr using NaCl .9. 7:22:23 History and physical on the chart or being dictated. Vitals capture started with the following parameters, Patient=Adult, Interval=5 min, Initial Pre nljig=864 mmHg, 7:23:47 Deflation Rate=5 mmHg, Cuff placed on Left Arm 7:24:25 HR=98 bpm, OGKU=509/88 mmhg, SpO2=99.0 %, Resp=15 B/min, Pain=0, Zay=10, Mora=2 Assessment: Initial Case, HR=98 BPM, Rhythm=afib, WWKB=826/88 mmhg, Chest Pain=0 Right Pulses: Lupillo Ped=2, Femoral=3 7:25:28 Left Pulses: Lupillo Ped=2, Femoral=3 Neurological: State=Alert, Ox3, LINDER Respiration: Resp=15 B/min, SpO2=99 % 7:29:18 HR=89 bpm, FCZZ=202/90 mmhg, SpO2=99.0 %, Resp=16 B/min, Pain=0, Zay=10, Mora=2 7:34:19 HR=84 bpm, MHLG=248/86 mmhg, XfX8=272.0 %, Resp=11 B/min, Pain=0, Zay=10, Mora=2 7:36:35 Bilateral groins prepped with 2% chlorhexidine, and draped after a 3 minute waiting time. 7:39:20 HR=85 bpm, UKIF=241/85 mmhg, SpO2=99.0 %, Resp=10 B/min 7:40:08 Pressure channel 1 zeroed. 7:44:21 HR=87 bpm, CUFW=576/75 mmhg, QpC2=989.0 %, Resp=10 B/min 7:49:20 HR=92 bpm, CEIQ=751/79 mmhg, SpO2=99.0 %, Resp=7 B/min 7:54:19 HR=89 bpm, AUDJ=233/80 mmhg, SpO2=99.0 %, Resp=8 B/min 7:56:45 MD arrived. 7:59:18 HR=90 bpm, NQNY=676/87 mmhg, SpO2=99.0 %, Resp=1 B/min 8:01:13 Reference ECG taken Time Out. Correct patient, correct procedure, correct physician, power injector loaded with cont rast with surgical team 8:02:05 present. Time Out Concurred by MD and individual staff in procedure. 8:04:03 Patient arrived on 1 mg VERSED given by Yosef Padilla RN in Left Forearm via Peripheral IV. 8:04:13 Case Start 8:04:21 HR=92 bpm, YCML=956/84 mmhg, SpO2=99.0 %, Resp=11 B/min 8:04:49 10 mL Bupivacaine given in lab by Aquilino Adhikari in Right Groin via Subcutaneous. 8:05:58 Access site was Right Femoral Artery. 8:09:27 HR=75 bpm, WEXJ=307/68 mmhg, SpO2=98.0 %, Resp=10 B/min 8:10:36 Arterial access obtained, manual pressure applied. 8:11:55 Access site was Right Femoral Vein. 8:12:15 A SHEATH, FR7 TERUMO (10CM) FR 7 was advanced into the Fem Art (right) using the Percutaneou s technique. 8:12:35 A SHEATH, FR6.5 PRELUDE 11CM FR 6.5 was advanced into the Fem Art (right) using the Percutan eous technique. 8:13:18 A SWAN HIRO CATHETER FR 7 was inserted via Fem Vein (right) Recorded Pressure: RA, HR=92, Condition=Condition 1 8:13:44 (Right Atrium) RA 4/4/2 Recorded Pressure: RV, HR=90, Condition=Condition 1 8:14:05 (Right Ventricle) RV 22/-2/ 8:14:21 HR=98 bpm, SPKX=375/72 mmhg, SpO2=98.0 %, Resp=5 B/min Recorded Pressure: PCW, HR=82, Condition=Condition 1 8:14:52 (Pulmonary Capillary Wedge) PCW 1315/10 Recorded Pressure: MPA, HR=83, Condition=Condition 1 8:16:12 (Main Pulmonary Artery) MPA 15 8:16:57 Saturation: Site=Ao (Aorta) , O2=96.1 %, Hgb=13.3 gm/dl, Condition=Condition 1. Used in calc ulation. Saturation: Site=MPA (Main Pulmonary Artery) , O2=73.9 %, Hgb=13.3 gm/dl, Condition=Condition 1. Used in 8:17:01 calculation. 8:17:59 [place] Hiro Catheter Removed A PIGTAIL ANG. 145 INFINITI CATHETER FR 6 was advanced over a wire. OMNIPAQUE, 350 MG, 50ML 50ML was used 8:18:22 for injections. Recorded Pressure: LV, HR=82, Condition=Condition 1 8:19:24 (Left Ventricle) LV 119/3/6 8:19:25 HR=96 bpm, KQPG=079/68 mmhg, SpO2=99.0 %, Resp=4 B/min 8:20:06 The LV was injected at 10 cc/sec for a total of 40. OMNIPAQUE, 350 MG, 50ML 50ML used. Recorded Pressure: LV, Ao, HR=96, Condition=Condition 1 8:20:50 (Left Ventricle) LV 93/2/3, (Aorta) Ao 93/49/68 8:21:19 Catheter was removed A JL 4.5 INFINITI CATHETER FR 6 was advanced over a wire. OMNIPAQUE, 350 MG, 100ML 100ML was use d for 8:21:41 injections. After removing the current catheter a JL 5.0 INFINITI CATHETER FR 6 was advanced over a WIRE, 3M MJ .035 180CM 8:23:58 180CM. Unable to cannulate LCA. 8:24:24 HR=86 bpm, ERKR=895/68 mmhg, SpO2=98.0 %, Resp=11 B/min 8:26:34 The LCA was injected and visualized at various angles. OMNIPAQUE, 350 MG, 100ML 100ML used. 8:27:25 Catheter was removed A 3DRC INFINITI CATHETER FR 6 was advanced over a wire. OMNIPAQUE, 350 MG, 100ML 100ML was used for 8:27:27 injections. 8:29:23 HR=79 bpm, UBVI=252/75 mmhg, SpO2=99.0 %, Resp=5 B/min, Pain=0, Zay=10, Mora=2 8:29:28 Catheter was removed 8:31:01 An injection in the Fem Art (right) was made through the SHEATH, FR6.5 PRELUDE 11CM FR 6.5. 8:31:18 ANGIOSEAL, FR6 VIP FR 6 placement in the Fem Art (right) 8:33:42 Sheath removed; pressure applied to access site. 8:33:53 Case End 8:34:24 HR=83 bpm, GDXR=912/72 mmhg, SpO2=99.0 %, Resp=11 B/min 8:39:25 HR=87 bpm, CNAL=632/81 mmhg, SpO2=99.0 %, Resp=11 B/min, Pain=0, Mora=2 8:44:24 HR=86 bpm, AHGT=458/77 mmhg, SpO2=99.0 %, Resp=9 B/min 8:46:16 Hemostasis obtained. 8:46:35 Sterile dressing applied to site 8:46:42 Cine recording checked. Assessment: Final Case, HR=91 BPM, Rhythm=afib, SMSI=169/77 mmhg, Chest Pain=0 Right Pulses: Lupillo Ped=2, Femoral=3 8:46:49 Left Pulses: Lupillo Ped=2, Femoral=3 Neurological: State=Alert, Ox3, LINDER Respiration: Resp=13 B/min, TuT4=387 % 8:48:44 Bedside Report will be given. End Study - Contrast Media Used In Study Contrast Total Opened (mL) Total Used (mL) Total Wasted (mL) Omnipaque 70 70 0 End Study - Maximum Contrast Load Max Contrast Load (mL) 399.4 End Study - Radiation Exposure Fluoro Time (minutes) 5.0 End Study - Sheaths Sheaths Pulled By Sheath Hold Time (min) Aquilino Adhikari End Study - Patient Disposition Complications Transferred To Interventional Outcome No Telemetry Bed No attempt made
[2017-06-26] MEDS ORDERED: MISC INFORMATION XX ONE (09:00)
--- NOTE | 2017-06-26 09:07 | MA ---
cc: ABBY SALGADO M.D. DATE 06/26/2017 PROCEDURE PERFORMED 1. Left heart catheterization. 2. Right heart catheterization. 3. Left ventriculography. 4. Coronary angiography. 5. Right femoral angiography with Angio-Seal placement. DESCRIPTION OF PROCEDURE The patient was brought to the cardiac laborer concrete paving in a fasting state. The right groin was prepped and draped in sterile fashion. Using 1% lidocaine for local anesthesia a 6.5 Kiswahili sheath was inserted in the right femoral artery. In a similar fashion a sheath was inserted in the right femoral vein. Next, right heart catheterization was performed using a Patterson-Luh catheter; this was then removed. LV pressure was then measured with an angled pigtail catheter followed by left ventriculography and then a pullback. Left coronary angiography was first attempted with a left 4.5 Eduarda but I switched to a left 5 Eduarda for better coaxial alignment. Right coronary angiography was completed using a 3-D RC catheter. Angiography of the right femoral artery was then obtained via the sheath followed by an uncomplicated Angio-Seal placement. There were no complications. Estimated blood loss was 5 cc. Total contrast load was about 70 cc. FINDINGS HEMODYNAMICS Right atrial pressure was 4/4 with a mean of 2. Right ventricular pressure was 22/0 with an end-diastolic pressure of 1. Pulmonary artery pressure was 22/9 with a mean of 15 with saturation of 73.9%. Pulmonary capillary wedge pressure was 13/15 with a mean of 10. V-waves appear to be about 7 mm. LV pressure is 93/2 with an end-diastolic pressure of 3. Aortic pressure is 93/49 with a mean of 68. Femoral artery saturation was 96.1% giving a [place] cardiac output of 4.9 liters per minute. LEFT VENTRICULOGRAPHY The left ventriculography shows normal left ventricular systolic function with an estimated ejection fraction of 65%. There are no wall motion abnormalities. There is obvious prolapse with about no more than 2+ mitral regurgitation. CORONARY ANGIOGRAPHY Coronary circulation is right-dominant. All three coronary arteries appear smooth and normal. CONCLUSIONS 1. Normal right heart pressures. 2. Normal left ventricular systolic function. 3. Mitral regurgitation, which appears angiographically to only be 2+ and no worse. 4. Normal coronary arteries. PLAN I am going to treat her medically at this point. She is going to go home on Eliquis in addition to her metoprolol for rate control and I will follow her up in the office. She can go home later today. MD JUDY Haynes/STANLEY /8:44 AM /8:50 AM
[2017-06-26] MEDS ORDERED: BACITRACIN OINT 0.9 GM PKT TOP ONE (09:15)
[2017-06-26] MEDS ORDERED: SODIUM CHLOR 0.9% 1000 ML INJ 1,000 ML IV SCH (09:15)
[2017-06-26] MEDS ORDERED: APIX5TAB PO (11:38)
[2017-06-26] MEDS ORDERED: LISI-519 PO (11:38)
--- NOTE | 2017-06-26 11:40 | HHI.FPPN ---
Subjective Remarks Patient seen and examined bedside after Procedure this morning. Patient states that the Procedure went very well and she has no complaints currently. There were no stents put in during the Procedure and the mitral valve was assessed and determined to be of adequate functioning. There is no further need for mitral valve replacement at this time. Patient denies any acute events overnight. No fever/chills. No chest pain/shortness of breath/dizziness. (Ameena Castillo MD R2) Objective Vitals Vital Signs Date Time Temp Pulse Resp B/P (MAP) Pulse Ox O2 Delivery O2 Flow Rate FiO2 06/26/17 09:18 99 Room Air 06/26/17 04:00 73 06/26/17 03:32 98.4 76 18 106/70 (82) 100 06/26/17 01:20 98.1 74 18 100/58 (72) 97 06/25/17 23:59 69 06/25/17 20:56 98.5 68 18 96/54 (68) 98 06/25/17 20:30 97 06/25/17 15:34 98.2 80 18 100/60 (73) 98 06/25/17 15:30 79 I/O 06/25/17 06/25/17 06/25/17 06/26/17 06/26/17 06/26/17 07:00 15:00 23:00 07:00 15:00 23:00 Intake Total 240 ml Balance 240 ml Intake Oral 240 ml # Voids 1 3 4 (Ameena Castillo MD R2) Result Diagram: 06/25/17 0849 06/25/17 0840 Objective Remarks GENERAL: In no acute distress, lying in bed in post procedure room SKIN: Warm and dry. HEAD: Normocephalic. EYES: No scleral icterus. No injection or drainage. NECK: Supple, trachea midline. No JVD or lymphadenopathy. CARDIOVASCULAR: Irregularly irregular, heart rate less than 100 RESPIRATORY: Breath sounds equal bilaterally. No accessory muscle use. GASTROINTESTINAL: Abdomen soft, non-tender, nondistended. MUSCULOSKELETAL: No cyanosis, or edema. BACK: Nontender without obvious deformity. No CVA tenderness. (Ameena Castillo MD R2) A/P Assessment and Plan Patient is a 81-year-old female with a past medical history significant for mitral valve prolapse, hypertension, and glaucoma who presents today for shortness of breath and chest heaviness and is admitted for new onset A. fib with RVR. Discharge Planning DC'd today (Ameena Castillo MD R2) Attending Attestation Patient seen and examined at 1130 on rounds; discussed with resident team. I agree with assessment and management as documented and discussed with me. Pt seen after cardiac catheterization. She is aware of results as discussed with her by Dr Adhikari. She denies chest pain, palpitations. She is looking forward to going home today. Discharge home today. Discussed with her the medication changes at discharge; discussed risks, benefits, and side effects of her new meds. (Elin Viveros MD) Problem List: (1) Atrial fibrillation with RVR ICD Codes: I48.91 - Unspecified atrial fibrillation Status: Acute Plan: New-onset A. fib with RVR, controlled with 10 mg IV Cardizem and metoprolol twice a day Likely secondary to mitral valve prolapse. s/p diltiazem 14 mg IV push in ED with subsequent rate control Troponins reassuring. BNP 475 TSH elevated at 7.23, but Free T4 WNL. Pt may benefit from repeat TSH/Free T4 in a few weeks as an outpatient. Echocardiogram performed in can filling machine operator's office on 06/24/17, which demonstrated severe mitral regurgitation. - Ever during catheter procedure today the mitral valve regurgitation was determined to be of less severity Chest x-ray shows no acute cardiopulmonary disease CHADs-VASc score of 4- Will start Eliquis after cardiac catheterization per Dr Adhikari. Plan: - Telemetry - Lipid profile: LDL 100 - Continue metoprolol 25mg PO BID - Add lisinopril 5 mg daily per cardiology - Add Eliquis milligrams twice a day per cardiology - Monitor I's and O's - Nitro PRN chest pain - Appreciate cardiology, Dr. Adhikari. Plan for cardiac catheterization in the morning. (2) Mitral valve prolapse ICD Codes: I34.1 - Nonrheumatic mitral (valve) prolapse Status: Chronic Plan: Pt with severe Mitral valve disease per Dr Adhikari. Further recs per cardiology. Stop flecainide. (3) HTN (hypertension) ICD Codes: I10 - Essential (primary) hypertension Status: Chronic Plan: Stable, borderline low BPs DC with decreased dose of lisinopril, lisinopril 5 mg daily DC with continued home metoprolol (4) Nutrition, metabolism, and development symptoms ICD Codes: R63.8 - Other symptoms and signs concerning food and fluid intake Plan: Fluids: None Electrolytes: wnl, continue to monitor and replete PRN Nutrition: Heart Healthy diet DVT ppx:*Eliquis after catheter as mentioned above (Ameena Castillo MD R2) Problem Qualifiers (1) HTN (hypertension): Qualified Codes: I10 - Essential (primary) hypertension Ameena Castillo MD R2 Jun 26, 2017 11:40 Elin Viveros MD Jun 26, 2017 20:23
[2017-06-26] MEDS ORDERED: IOHEXOL 350 MG/ML 100 ML BTL (for Cath Lab) OTHER ONE (14:43)
--- NOTE | 2017-06-26 14:45 | HHI.DS ---
Discharge Summary Admission Date Jun 24, 2017 at 19:56 Discharge Date: Jun 26, 2017 Admitting Diagnosis New onset symptomatic A fib with RVR (1) Atrial fibrillation with RVR Diagnosis: Principal Plan: New-onset A. fib with RVR, controlled with 10 mg IV Cardizem and metoprolol twice a day Likely secondary to mitral valve prolapse. s/p diltiazem 14 mg IV push in ED with subsequent rate control Troponins reassuring. BNP 475 TSH elevated at 7.23, but Free T4 WNL. Pt may benefit from repeat TSH/Free T4 in a few weeks as an outpatient. Echocardiogram performed in precision instrument maker and repairer's office on 06/24/17, which demonstrated severe mitral regurgitation. - Ever during catheter procedure today the mitral valve regurgitation was determined to be of less severity Chest x-ray shows no acute cardiopulmonary disease CHADs-VASc score of 4- Will start Eliquis after cardiac catheterization per Dr Adhikari. Plan: - Telemetry - Lipid profile: LDL 100 - Continue metoprolol 25mg PO BID - Add lisinopril 5 mg daily per cardiology - Add Eliquis milligrams twice a day per cardiology - Monitor I's and O's - Nitro PRN chest pain - Appreciate cardiology, Dr. Adhikari. Plan for cardiac catheterization in the morning. ICD Codes: I48.91 - Unspecified atrial fibrillation Status: Acute (2) Mitral valve prolapse Diagnosis: Principal Plan: Pt with severe Mitral valve disease per Dr Adhikari. Further recs per cardiology. Stop flecainide. ICD Codes: I34.1 - Nonrheumatic mitral (valve) prolapse Status: Chronic (3) HTN (hypertension) Diagnosis: Secondary Plan: Stable, borderline low BPs DC with decreased dose of lisinopril, lisinopril 5 mg daily DC with continued home metoprolol ICD Codes: I10 - Essential (primary) hypertension Status: Chronic (4) Nutrition, metabolism, and development symptoms Diagnosis: Secondary Plan: Fluids: None Electrolytes: wnl, continue to monitor and replete PRN Nutrition: Heart Healthy diet DVT ppx:*Eliquis after catheter as mentioned above ICD Codes: R63.8 - Other symptoms and signs concerning food and fluid intake Brief History Patient is a 81-year-old female with a past medical history significant for mitral valve prolapse, hypertension, and glaucoma who presents today for shortness of breath and chest heaviness. She has been experiencing shortness of breath and chest heaviness for the past couple weeks on and off. She has history of mitral valve prolapse and has palpitations with that. She went to see Dr. Adhikari today and he found that her resting heart rate was 139. He did an Echo in his office and sent her to the ED for further evaluation and treatment. The shortness of breath comes and goes. The chest heaviness started 10 days and has been intermittent. The chest heaviness has been different recently, happening more often over the past week. It has not increased in intensity, but she has felt fatigued often. Things that she was previously able to do without difficulty now make her tired. Things like shopping and housework make her feel exhausted. Sometimes, she would also get shortness of breath with these activities. She especially noticed symptoms while climbing stairs, or hurrying, or bending over. The heaviness is located in the center of her chest. She was feeling the heaviness when she got to the ED and it improved after receiving diltiazem. She is now feeling a small amount of chest heaviness. She denies any weakness, nausea, vomiting, light- headedness, or vision changes. Sometimes she would feel like her heart wasn't beating right like a skipped beat or faster than usual. No recent illnesses. CBC/BMP: 06/25/17 0849 06/25/17 0840 Significant Findings Laboratory Tests Test 06/24/17 17:00 06/24/17 23:08 06/25/17 05:00 06/25/17 08:40 Red Cell Distribution Width 18.1 % (11.6-17.2) Estimat Glomerular Filtration Rate 68 ML/MIN (>89) 71 ML/MIN (>89) Total Creatine Kinase 272 U/L (26-192) 196 U/L (26-192) Creatine Kinase MB 4.4 NG/ML (0.5-3.6) Troponin I LESS THAN 0.02 NG/ML LESS THAN 0.02 NG/ML LESS THAN 0.02 NG/ML B-Type Natriuretic Peptide 475 PG/ML (0-100) Thyroid Stimulating Hormone 3rd Gen 7.230 uIU/ML (0.358-3.740) Total Protein 6.2 GM/DL (6.4-8.2) Calcium Level 8.4 MG/DL (8.5-10.1) Triglycerides Level 41 MG/DL (42-150) LDL Cholesterol 101 MG/DL (0-99) HDL Cholesterol 91.2 MG/DL (40.0-60.0) Test 06/25/17 08:49 Red Cell Distribution Width 18.8 % (11.6-17.2) PE at Discharge GENERAL: In no acute distress, lying in bed in post procedure room SKIN: Warm and dry. HEAD: Normocephalic. EYES: No scleral icterus. No injection or drainage. NECK: Supple, trachea midline. No JVD or lymphadenopathy. CARDIOVASCULAR: Irregularly irregular, heart rate less than 100 RESPIRATORY: Breath sounds equal bilaterally. No accessory muscle use. GASTROINTESTINAL: Abdomen soft, non-tender, nondistended. MUSCULOSKELETAL: No cyanosis, or edema. BACK: Nontender without obvious deformity. No CVA tenderness. Hospital Course 77 y/o F , pmhx of MVP, presented with new-onset Afibb w/ RVR. She was easily controlled with IV Dilt 14mg and Metoprolol BID. Echo revealed severe MR and precision instrument maker and repairer came to see pt in hospital and decided to do cath on to further investigate MR. He then added Eliquis for anticoagulation and decreased ACEi dosing from 10mg/day to 5mg/day. He recommended to continue metoprolol and d/c flecinaide. Pt Condition on Discharge: Stable Discharge Disposition: Discharge Home Discharge Instructions DIET: Follow Instructions for: Heart Healthy Diet Activities you can perform: Regular-No Restrictions New Medications: Apixaban (Eliquis) 5 Mg Tab 5 MG PO BID for Blood Clot Prevention, #60 TAB 0 Refills Apixaban (Eliquis) 5 Mg Tab 5 MG PO BID, #60 TAB Lisinopril (Lisinopril) 5 Mg Tab 5 MG PO DAILY, #30 TAB Metoprolol Tartrate (Metoprolol Tartrate) 25 Mg Tab 25 MG PO BID, #60 TAB Discontinued Medications: Flecainide (Flecainide) 50 Mg Tab 50 MG PO BID for Regulate Heart Beat, #60 TAB 0 Refills Lisinopril (Lisinopril) 10 Mg Tab 10 MG PO DAILY, #30 TAB 0 Refills Ameena Castillo MD R2 Jun 26, 2017 14:45
[2017-06-26] MEDS ORDERED: APIXABAN 5 MG TABLET PO SCH (21:00)
[2017-06-27] MEDS ORDERED: LISINOPRIL 5 MG TAB PO SCH (09:00)
== END 2017-06-26 14:44 | disposition home or self-care (01) ==
LOC: NEPC 15:45 → NEDA 19:21 → UNDOADMIN 19:21 → NEDA 19:56 → INTOOBSV 19:56 → NEPGCP 21:23 → HCIS 06-26 07:21
PROVIDERS: ADMIT Family Medicine; ATTEND Family Medicine
DX: I48.91 Unspecified atrial fibrillation (principal); Z66 Do not resuscitate; I34.1 Nonrheumatic mitral (valve) prolapse; I34.0 Nonrheumatic mitral (valve) insufficiency; I10 Essential (primary) hypertension; R07.89 Other chest pain; R06.02 Shortness of breath; R00.2 Palpitations; H40.9 Unspecified glaucoma; R94.31 Abnormal electrocardiogram [ECG] [EKG]; E78.5 Hyperlipidemia, unspecified; M54.30 Sciatica, unspecified side; I87.2 Venous insufficiency (chronic) (peripheral); Z85.828 Personal history of other malignant neoplasm of skin; Z79.899 Other long term (current) drug therapy; Z87.891 Personal history of nicotine dependence
CPT/HCPCS: 71046; 80048; 80053; 80061; 82550; 82552; 82810; 83735; 83880; 84439; 84443; 84484; 85025; 85610; 85730; 93005; 93460; 96361; 96372; 96374; 99152; 99153; 99285; C1760; C1769; C1893; G0269; G0378; J1644; J1650; J2250; J7030; Q9967

== ENCOUNTER 2017-07-19 05:57 | Day surgery (SDC) | payer MEDICARE, BC ==
[~2017-07-19 05:57] MED LIST: APIX5TAB PO; LISI-519 PO; METO25TA3 PO
[2017-07-19] MEDS ORDERED: POVIDONE IODINE 5% (ANTISEPSIS KIT) 4 APPLICATIONS EACH NARE PRN (06:30)
[2017-07-19] MEDS ORDERED: CHLORHEXIDINE GLUCONATE 2 % 1 PACK (2 CLOTHS) TOPICAL PRN (06:30)
[2017-07-19] MEDS ORDERED: SODIUM CHLORID 0.9% 500 ML IV PRN (06:30)
[2017-07-19] MEDS ORDERED: LACTATED RINGER'S 1000 ML IV PRN (06:30)
[2017-07-19] MEDS ORDERED: LACTCAP8 PO (06:56)
[2017-07-19] MEDS ORDERED: MULTTAB67 PO (06:56)
[2017-07-19] MEDS ORDERED: SYSTSOL EACH EYE (06:56)
[2017-07-19] MEDS ORDERED: LATA0.002 EACH EYE (06:56)
[2017-07-19] MEDS ORDERED: BUPR150XL PO (06:56)
[2017-07-19] MEDS ORDERED: POLY17PO3 PO (06:56)
[2017-07-19] MEDS ORDERED: calcium PO (06:56)
--- NOTE | 2017-07-20 23:08 | EKG ---
Date Performed: 07/19/2017 Time Performed: 06:44:46 PTAGE: 81 years EKG: Atrial fibrillation. Inferior T wave changes are nonspecific Abnormal ECG PREVIOUS TRACING : 06/25/2017 05.17 Since the prior tracing, there has been no significant atkinson DOCTOR: Horace Perez Interpretating Date/Time 07/20/2017 23:07:35
== END 2017-07-19 09:59 | disposition home or self-care (01) ==
LOC: HDIC 05:57 → HSDC 05:57
PROVIDERS: ATTEND Internal Medicine Cardiovascular Disease
DX: I34.1 Nonrheumatic mitral (valve) prolapse (principal); I36.1 Nonrheumatic tricuspid (valve) insufficiency; I87.2 Venous insufficiency (chronic) (peripheral); I48.91 Unspecified atrial fibrillation; I10 Essential (primary) hypertension; Z79.01 Long term (current) use of anticoagulants; Z79.82 Long term (current) use of aspirin
CPT/HCPCS: 93005; 93312; 93320; 93325